=== PATIENT | female | born 1990 | race Caucasian/White ===

== ENCOUNTER 2020-01-05 04:16 | Emergency (ER) | payer MEDICAID ==
[~2020-01-05] VITALS: Ht 157.5 cm; Wt 64.9 kg
[2020-01-05 04:30] VITALS: Ht 157.5 cm; Wt 64.9 kg
[2020-01-05 05:24] LABS: CALCIUM 8.6 mg/dL (8.5-10.1); CARBON DIOXIDE 29.6 mmol/L (21-32); CHLORIDE SERUM 100 mmol/L (98-107); CREATININE SERUM 0.8 mg/dL (0.6-1.0); GFR1 > 60 mL/min; GLUCOSE SERUM 101 mg/dL (74-106); POTASSIUM SERUM 3.8 mmol/L (3.5-5.1); SODIUM SERUM 136 mmol/L (136-145)
[2020-01-05 05:28] LABS: ALBUMIN 3.7 g/dL (3.4-5.0); ALKALINE PHOSPHATASE 94 U/L (46-116); ALT/SGPT 27 U/L (14-59); AST/SGOT 13 U/L (15-37); BILIRUBIN TOTAL 0.27 mg/dL (0.20-1.00); LIPASE 84 IU/L (73-393); TOTAL PROTEIN, SERUM 7.9 g/dL (6.4-8.2)
[2020-01-05 05:40] LABS: BASOPHIL % 0.4 % (0-2); PLATELET COUNT 328 x10^3mcL (130-400); RED CELL DISTRIBUTION WIDTH 14.4 % (11.5-14.5)
[2020-01-05 06:51] VITALS: BP 117/71
[2020-01-07] MEDS ORDERED: GOOD NEIGHBOR P20 M2 PO ×2 (22:20→22:21)
[2020-01-07] MEDS ORDERED: ZOF4 PO (22:21)
[2020-01-07] MEDS ORDERED: NORCO1 TA2 PO (22:21)
== END 2020-01-05 06:51 | disposition home or self-care (01) ==
LOC: ED 04:16
PROVIDERS: Emergency Medicine
DX: K80.20 Calculus of gallbladder without cholecystitis without obstruction (principal); J45.909 Unspecified asthma, uncomplicated
CPT/HCPCS: J2270; J2405; J7030; Q0092

== ENCOUNTER 2020-03-05 22:12 | Emergency (ER) | payer MEDICAID, SELFPAY ==
[~2020-03-05] VITALS: Ht 157.5 cm; Wt 61.7 kg
[~2020-03-05 22:12] MED LIST: FLAGYL500 MG PO; GOOD NEIGHBOR P20 M2 PO; LEVAQUIN500 M1 PO; NORCO1 TA2 PO; ZOF4 PO
[2020-03-05 22:16] VITALS: Ht 157.5 cm; Wt 61.7 kg
[2020-03-05 23:22] VITALS: BP 108/50
== END 2020-03-05 23:22 | disposition home or self-care (01) ==
LOC: ED 22:12
DX: B34.9 Viral infection, unspecified (principal); J45.909 Unspecified asthma, uncomplicated; Z20.828 Contact with and (suspected) exposure to other viral communicable diseases; Z87.19 Personal history of other diseases of the digestive system; Z90.49 Acquired absence of other specified parts of digestive tract
CPT/HCPCS: U0003-CS